=== PATIENT | female | born 2000 | race Asian ===

== ENCOUNTER 2022-01-11 18:54 | Emergency (ER) | payer BC ==
[~2022-01-11] VITALS: Ht 154.9 cm; Wt 59.0 kg
[2022-01-11 18:55] VITALS: BP_SYST 112
--- NOTE | 2022-01-11 18:55 | NUR ---
BROUGHT BACK TO BED #6 AND TRIAGED. REPORT GIVEN TO ARJUN
--- NOTE | 2022-01-11 19:00 | NUR ---
Pt brought by partner,A&Ox4, pt presents to ER with cough/ congestion , temp 100.7 skin pink and warm, cap refill <3, VSS, respirations even and unlabored.
--- NOTE | 2022-01-11 19:14 | NUR ---
COVID-19 VIKTORIYA AND INFLUENZA OBTAINED AND SENT TO THE LAB.
--- NOTE | 2022-01-11 19:25 | NUR ---
Dr Hinds evaluating patient at bedside
[2022-01-11] MEDS: ACETAMINOPHEN 325 MG TABLET PO ONE (19:44)
--- NOTE | 2022-01-11 19:45 | NUR ---
TYLENOL GIVEN PT COMPLAINING OF 9/10 IN HER HEAD AND BODY. PT HAS A FEVER OF 101
[2022-01-11] MEDS ORDERED: NITR-85 PO (20:30)
[2022-01-11] MEDS ORDERED: IBUP-1969 PO (20:31)
[2022-01-11] MEDS ORDERED: cefTRIAXone 1 GM VIAL ONE (20:36)
[2022-01-11] MEDS ORDERED: LIDOCAINE 1%, 20 ML MDV 20 ML ONE (20:38)
--- NOTE | 2022-01-11 20:40 | NUR ---
OK PER MD TO GIVE IM ROCEPHIN
[2022-01-11] MEDS: cefTRIAXone 1 GM in LIDOCAINE 1%, 20 ML MDV 2.1 ML IM ONE (20:51)
[2022-01-11 21:27] VITALS: BP_SYST 112
--- NOTE | 2022-01-11 21:27 | NUR ---
Patient given written and verbal discharge instructions and verbalizes understanding. ER MD discussed with patient the results and treatment provided. Patient in stable condition. ID arm band removed. Rx of MOTRIN, BACTRIM given. Patient educated on pain management and to follow up with PMD. Pain Scale 0/10. Opportunity for questions provided and answered. Medication side effect fact sheet provided.
== END 2022-01-11 21:27 | disposition home or self-care (01) ==
LOC: SED 18:54
DX: J06.9 Acute upper respiratory infection, unspecified (principal); Z20.822 Contact with and (suspected) exposure to COVID-19
CPT/HCPCS: 36415; 81002; 81025; 87426; 87804 ×2; 96372; 99283; J0696; J2001